=== PATIENT | male | born 1990 | race Caucasian/White ===

== ENCOUNTER 2020-12-06 18:05 | Emergency (ER) | payer BC, MEDICAID ==
[~2020-12-06] VITALS: Ht 180.3 cm; Wt 68.2 kg
[2020-12-06] MEDS ORDERED: penicillin V potassium 500mg tablet PO ONE (20:20)
[2020-12-06] MEDS ORDERED: PENI500T2 PO (20:22)
[2020-12-06 20:34] VITALS: BP 115/68
== END 2020-12-06 20:35 | disposition home or self-care (01) ==
LOC: ER 18:06
DX: K04.7 Periapical abscess without sinus (principal); K08.89 Other specified disorders of teeth and supporting structures; Z79.2 Long term (current) use of antibiotics
CPT/HCPCS: 99283

== ENCOUNTER 2021-07-22 13:35 | Emergency (ER) | payer MEDICAID ==
[~2021-07-22] VITALS: Ht 180.3 cm; Wt 67.8 kg
[2021-07-22 13:44] VITALS: BP 150/64
[2021-07-22] MEDS ORDERED: HYDR-3965 PO (14:58)
[2021-07-22] MEDS ORDERED: naproxen 500mg tablet PO ONE (15:00)
[2021-07-22] MEDS ORDERED: HYDROcodone/acetaminophen 5mg/325mg tablet PO ONE (15:00)
== END 2021-07-22 15:36 | disposition home or self-care (01) ==
LOC: ER 13:35
DX: S52.501A Unspecified fracture of the lower end of right radius, initial encounter for closed fracture (principal); F17.210 Nicotine dependence, cigarettes, uncomplicated; F12.10 Cannabis abuse, uncomplicated; W19.XXXA Unspecified fall, initial encounter; Y93.89 Activity, other specified; Y92.89 Other specified places as the place of occurrence of the external cause; Y99.8 Other external cause status
CPT/HCPCS: 29125; 73110; 99283

== ENCOUNTER 2021-12-03 12:40 | Emergency (ER) | payer MEDICAID ==
[~2021-12-03] VITALS: Ht 177.8 cm; Wt 68.2 kg
[2021-12-03 12:52] VITALS: BP 133/86
[2021-12-03] MEDS ORDERED: amox tr/potassium clavulanate 875/125mg TAB PO ONE (15:05)
[2021-12-03] MEDS ORDERED: AMOX-117 PO (15:11)
== END 2021-12-03 16:23 | disposition home or self-care (01) ==
LOC: ER 12:40
DX: K04.7 Periapical abscess without sinus (principal); F12.90 Cannabis use, unspecified, uncomplicated; Z98.890 Other specified postprocedural states
CPT/HCPCS: 99283